=== PATIENT | male | born 1965 | race Caucasian/White ===

== ENCOUNTER 2017-07-16 16:44 | Observation (INO) | payer OTHER ==
[2017-07-16 16:48] VITALS: BP 139/86; PULSE 86; RESP 15; O2SAT 98
--- NOTE | 2017-07-16 17:47 | RADRPT ---
EXAM DATE/TIME: 07/16/2017 17:43 [place] COMPARISON: No previous studies available for comparison. INDICATIONS : Chest pain. MEDICAL HISTORY : None. SURGICAL HISTORY : None. ENCOUNTER: Initial ACUITY: 2 days PAIN SCORE: 2/10 LOCATION: chest midline. FINDINGS: PA and lateral views of the chest demonstrate the lungs to be symmetrically aerated without evidence of mass, infiltrate or effusion. No evidence of pneumothorax. The cardiomediastinal contours are un remarkable. Osseous structures are intact. CONCLUSION: The lungs are clear. Ricky Ragland MD on July 16, 2017 at 17:45 Board Certified Radiologist. This report was verified electronically.
[2017-07-16 18:26] LABS: BASOPHIL % 0.6 % (0.0-2.0); EOSINOPHIL # 0.1 TH/MM3 (0-0.4); EOSINOPHIL % 0.9 % (0.0-4.0); HEMATOCRIT 48.6 % (39.0-51.0); HEMOGLOBIN 16.6 GM/DL (13.0-17.0); LYMPH % 14.4 % (9.0-44.0); LYMPHOCYTE # 1.1 TH/MM3 (1.0-4.8); MEAN CORPUSCULAR HEMOGLOBIN 30.7 PG (27.0-34.0); MEAN CORPUSCULAR HGB CONC 34.1 % (32.0-36.0); MEAN PLATELET VOLUME 8.9 FL (7.0-11.0); MONO % 7.1 % (0.0-8.0); MONOCYTE # 0.6 TH/MM3 (0-0.9); PLATELET COUNT 193 TH/MM3 (150-450); RED CELL DISTRIBUTION WIDTH 13.3 % (11.6-17.2); WHITE BLOOD COUNT 7.8 TH/MM3 (4.0-11.0)
[2017-07-16 18:39] LABS: BICARBONATE 28.6 MEQ/L (21.0-32.0); BLOOD UREA NITROGEN 22 MG/DL (7-18); CALCIUM 9.7 MG/DL (8.5-10.1); CHLORIDE 104 MEQ/L (98-107); CREATININE 1.45 MG/DL (0.60-1.30); GLOMERULAR FILTRATION RATE 52 ML/MIN (>89); GLUCOSE,RANDOM 92 MG/DL (74-106); SODIUM (NA) 138 MEQ/L (136-145)
[2017-07-16 18:43] LABS: TROPONIN I LESS THAN 0.02 NG/ML (0.02-0.05)
[2017-07-16 18:47] LABS: INTERNATIONAL NORMALIZED RATIO 0.9 RATIO; PROTHROMBIN TIME - PATIENT 10.1 SEC (9.8-11.6)
--- NOTE | 2017-07-16 19:06 | PD ---
HPI Chief Complaint: Cardiac Complaint Time Seen by Provider: 19:04 Travel History International Travel<30 days: No Contact w/Intl Traveler<30days: No Traveled to known affect area: No History of Present Illness HPI 51-year-old male with no significant past medical history presents for evaluation of chest discomfort. He reports that symptoms started yesterday evening at 7 PM while sitting. He describes it as a dull aching sensation which is constant, no obvious aggravating factors, it seems to be somewhat improved when lying down. He reports that he went to sleep yesterday evening and woke up and the pain has persisted throughout the day. He was seen at [facility] and referred here for further evaluation and workup. The patient was given one sublingual nitroglycerin and 325 mg of aspirin at this clinic and he reports that the blister did help with his discomfort. He currently rates it as a 1.5 out of 10 pain. He has never had this sort of pain before. He denies any shortness of breath, diaphoresis, nausea, vomiting, Tylenol pain, leg swelling. He reports paternal history of coronary artery disease in his 60s. His primary care physician is Dr. Bang. No other complaints at this time. [facility] Social History Alcohol Use: No Tobacco Use: No Allergies-Medications (Allergen,Severity, Reaction): Coded Allergies: Penicillins (Verified Allergy, Unknown, 07/16/17) Review of Systems Except as stated in HPI: all other systems reviewed are Neg Physical Exam Narrative GENERAL: Well-developed well-nourished male in no acute distress SKIN: Warm and dry. HEAD: Atraumatic. Normocephalic. EYES: Pupils equal and round. No scleral icterus. No injection or drainage. ENT: No nasal bleeding or discharge. Mucous membranes pink and moist. NECK: Trachea midline. No JVD. CARDIOVASCULAR: Regular rate and rhythm. No murmur appreciated. RESPIRATORY: No accessory muscle use. Clear to auscultation. Breath sounds equal bilaterally. GASTROINTESTINAL: Abdomen soft, non-tender, nondistended. Hepatic and splenic margins not palpable. MUSCULOSKELETAL: No obvious deformities. No clubbing. No cyanosis. No edema. NEUROLOGICAL: Awake and alert. No obvious cranial nerve deficits. Motor grossly within normal limits. Normal speech. PSYCHIATRIC: Appropriate mood and affect; insight and judgment normal. Data Data Last Documented VS Vital Signs Date Time Temp Pulse Resp B/P (MAP) Pulse Ox O2 Delivery O2 Flow Rate FiO2 07/16/17 16:48 86 15 139/86 (103) 98 Orders Orders Electrocardiogram (07/16/17 16:59) Complete Blood Count With Diff (07/16/17 16:59) Basic Metabolic Panel (Bmp) (07/16/17 16:59) Ckmb (Isoenzyme) Profile (07/16/17 16:59) Troponin I (07/16/17 16:59) Iv Access Insert/Monitor (07/16/17 16:59) Ecg Monitoring (07/16/17 16:59) Oxygen Administration (07/16/17 16:59) Oximetry (07/16/17 16:59) Act Partial Throm Time (Ptt) (07/16/17 16:59) Prothrombin Time / Inr (Pt) (07/16/17 16:59) Chest, Pa & Lat (07/16/17 16:59) CKMB (07/16/17 18:00) CKMB% (07/16/17 18:00) Admit Order (Ed Use Only) (07/16/17 19:26) Nitroglycerin 2% Oint (Nitroglycerin 2% (07/16/17 19:30) Activity Bed Rest With Brp (07/16/17 19:26) Vital Signs (Adult) Q4H (07/16/17 19:26) Cardiac Rhythm .As Directed (07/16/17 19:26) Notify Dr: Other .PRN (07/16/17 19:26) Notify Dr. Parameters (07/16/17 19:26) Resp Oxygen Nasal Cannula (07/16/17 ) Ckmb (Isoenzyme) Profile (07/16/17 21:00) Ckmb (Isoenzyme) Profile (07/17/17 00:00) Troponin I (07/16/17 21:00) Troponin I (07/17/17 00:00) Electrocardiogram (07/16/17 21:00) Electrocardiogram (07/17/17 00:00) ^ Obtain (07/16/17 19:26) Sodium Chloride 0.9% Flush (Ns Flush) (07/16/17 19:30) Sodium Chloride 0.9% Flush (Ns Flush) (07/16/17 21:00) Npo After Midnight W/ Po Meds (07/17/17 Breakfast) Labs Laboratory Tests Test 07/16/17 18:00 White Blood Count 7.8 TH/MM3 Red Blood Count 5.40 MIL/MM3 Hemoglobin 16.6 GM/DL Hematocrit 48.6 % Mean Corpuscular Volume 90.0 FL Mean Corpuscular Hemoglobin 30.7 PG Mean Corpuscular Hemoglobin Concent 34.1 % Red Cell Distribution Width 13.3 % Platelet Count 193 TH/MM3 Mean Platelet Volume 8.9 FL Neutrophils (%) (Auto) 77.0 % Lymphocytes (%) (Auto) 14.4 % Monocytes (%) (Auto) 7.1 % Eosinophils (%) (Auto) 0.9 % Basophils (%) (Auto) 0.6 % Neutrophils # (Auto) 6.0 TH/MM3 Lymphocytes # (Auto) 1.1 TH/MM3 Monocytes # (Auto) 0.6 TH/MM3 Eosinophils # (Auto) 0.1 TH/MM3 Basophils # (Auto) 0.0 TH/MM3 CBC Comment DIFF FINAL Differential Comment Prothrombin Time 10.1 SEC Prothromb Time International Ratio 0.9 RATIO Activated Partial Thromboplast Time 24.9 SEC Blood Urea Nitrogen 22 MG/DL Creatinine 1.45 MG/DL Random Glucose 92 MG/DL Calcium Level 9.7 MG/DL Sodium Level 138 MEQ/L Potassium Level 4.1 MEQ/L Chloride Level 104 MEQ/L Carbon Dioxide Level 28.6 MEQ/L Anion Gap 5 MEQ/L Estimat Glomerular Filtration Rate 52 ML/MIN Total Creatine Kinase 184 U/L Creatine Kinase MB 3.4 NG/ML Troponin I LESS THAN 0.02 NG/ML [facility] Medical Decision Making Medical Screen Exam Complete: Yes Emergency Medical Condition: Yes Medical Record Reviewed: Yes Differential Diagnosis Angina, acute coronary syndrome, costochondritis, pneumothorax, pericarditis, myocarditis, GERD Narrative Course The patient was placed on ECG monitoring pulse oximetry. A 12-lead EKG was obtained. Plan is for basic lab work, chest x-ray which was accomplished in triage. EKG reveals sinus rhythm, initial lab work is reassuring. At this point in time the plan will be to admit the patient with chest pain center for serial cardiac enzymes and rule out purposes. He is agreeable. Nitroglycerin paste was ordered. Diagnosis Primary Impression: Chest pain Qualified Codes: R07.9 - Chest pain, unspecified Admitting Information Admitting Physician Requests: Observation Ramesh Cooper Jul 16, 2017 19:06
[2017-07-16] MEDS ORDERED: NITROGLYCERIN 2% OINT 1 GM PACKET TOP ONE (19:30)
[2017-07-16] MEDS ORDERED: SODIUM CHLORIDE 0.9% FLUSH 10 ML FLUSH IV FLUSH PRN (19:30)
[2017-07-16 19:53] VITALS: BP 127/83; PULSE 73; RESP 18; TEMP 98.4; O2SAT 100
[2017-07-16 20:00] VITALS: O2SAT 100
[2017-07-16] MEDS: SODIUM CHLORIDE 0.9% FLUSH 10 ML FLUSH IV FLUSH SCH (21:00)
[2017-07-16 21:26] VITALS: BP 111/79; PULSE 83; RESP 20; TEMP 98.2; O2SAT 99
--- NOTE | 2017-07-16 21:35 | EKG ---
Date Performed: 07/16/2017 Time Performed: 17:53:55 PTAGE: 51 years EKG: Sinus rhythm NO PREVIOUS TRACING DOCTOR: Sharan Rodriguez Interpretating Date/Time 07/16/2017 21:34:01
--- NOTE | 2017-07-16 21:35 | EKG ---
Date Performed: 07/16/2017 Time Performed: 17:53:55 PTAGE: 51 years EKG: Sinus rhythm NO PREVIOUS TRACING DOCTOR: Sharan Rodriguez Interpretating Date/Time 07/16/2017 21:34:01
--- NOTE | 2017-07-16 21:35 | EKG ---
Date Performed: 07/16/2017 Time Performed: 17:53:55 PTAGE: 51 years EKG: Sinus rhythm NO PREVIOUS TRACING DOCTOR: Sharan Rodriguez Interpretating Date/Time 07/16/2017 21:34:01
[2017-07-16 22:50] VITALS: BP 105/59; PULSE 70; RESP 18; TEMP 97.8; O2SAT 94
[2017-07-16 23:47] LABS: TROPONIN I LESS THAN 0.02 NG/ML (0.02-0.05)
[2017-07-17 02:47] LABS: TROPONIN I LESS THAN 0.02 NG/ML (0.02-0.05)
[2017-07-17 03:47] VITALS: BP 101/61; PULSE 61; RESP 18; TEMP 97.9; O2SAT 97
[2017-07-17 07:49] VITALS: O2SAT 93
--- NOTE | 2017-07-17 08:13 | HHI.HP ---
HPI Primary Care Physician Jeffrey Angel MD Chief Complaint Chest discomfort History of Present Illness 51 year old male with no past medical history presents to the ER for further evaluation of chest discomfort. Onset Saturday around 7 pm. Location substernal. Characterized as "uncomfortable, not pain, sharp, or pressure." Severity "mild. " Duration constant since Saturday evening. No radiation. No associated symptoms of nausea, vomiting, dyspnea, or diaphoresis. No known precipitating or relieving factors. Denies similar pain in the past. Laying flat makes pain better. Initially thought discomfort was ingestion, took Pepto with some relief on Saturday night. Review of Systems General: No fatigue,weakness, fever, chills, or recent illness. Has been in his general state of health. HEENT: No OWEN, no dysphasia CV: As stated above. Chest discomfort continues, reported to be less severe. No palpations or dizziness RESP: No SOB, cough, wheeze, or sputum production. GI: No nausea, vomiting, or bowel changes. No unintentional weight gain or weight loss. : No dysuria, urgency, frequency, or history of kidney stones EXT: No lower leg edema, no paraesthesias MS: No discomfort, change in ROM, injury, trauma, or recent. NEURO: No difficulty with balance, LOC, or motor/sensory deficits PSYCH: No anxiety, depression, or situational stress. SKIN: No rashes, no concerning lesions Past Family Social History Allergies: Coded Allergies: Penicillins (Verified Allergy, Unknown, 07/16/17) Past Medical History None Past Surgical History Right carpel tunnel surgery- 5 years ago Reported Medications None Active Ordered Medications Current Medications Medications (Trade) Dose Ordered Sig/Blessing Route Start Time Stop Time Status Last Admin (NS Flush) 2 ml UNSCH PRN IV FLUSH 07/16/17 19:30 (NS Flush) 2 ml BID IV FLUSH 07/16/17 21:00 Family History Father CABG x4 in late 40s. Social History No known CAD, hypertension, diabetes, or hyperlipidemia. Lifelong nonsmoker. Denies any alcohol or illegal drug use. 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 None Physical Exam Vital Signs Vital Signs Date Time Temp Pulse Resp B/P (MAP) Pulse Ox O2 Delivery O2 Flow Rate FiO2 07/17/17 03:47 97.9 61 18 101/61 (74) 97 07/16/17 22:50 97.8 70 18 105/59 (74) 94 07/16/17 21:26 98.2 83 20 111/79 (90) 99 07/16/17 21:23 07/16/17 20:00 100 07/16/17 19:53 100 Room Air 07/16/17 19:53 100 Nasal Cannula 07/16/17 19:53 98.4 73 18 127/83 (98) 100 Room Air 07/16/17 16:48 86 15 139/86 (103) 98 Physical Exam GENERAL: Alert WN, WD, NAD, pleasant, male HEAD: NC, AT EYES: Sclera clear, conjunctiva without injection, pupils equal and round ENT: Mucous membranes pink and moist NECK: Supple, no masses, trachea midline CV: RRR, without murmur, rub, gallop, no JVD, S1-S2 no S3-S4. No carotid bruits. Chest wall nontender with palpations. RESP: Clear lungs throughout bilateral, no crackles, wheeze, rhonchi, symmetrical chest rise, nonlabored, able to speak in full sentences ABD: Soft, NT, ND, no masses, positive bowel tones EXT: Pulses +24, no dependent edema MS: Normal tone 4 extremities, no obvious deformities, full range of motion NEURO: CN II through CN XII grossly intact, motor strength 5/5, gait WNL PSYCH: A+O 3, pleasant affect, appropriate speech, appropriate mood and affect , insight and judgment SKIN: Normal turgor, normal texture, no lesions, no rashes, brisk cap refill, even hair distribution Laboratory Laboratory Tests Test 07/16/17 18:00 07/16/17 23:00 07/17/17 01:50 White Blood Count 7.8 Red Blood Count 5.40 Hemoglobin 16.6 Hematocrit 48.6 Mean Corpuscular Volume 90.0 Mean Corpuscular Hemoglobin 30.7 Mean Corpuscular Hemoglobin Concent 34.1 Red Cell Distribution Width 13.3 Platelet Count 193 Mean Platelet Volume 8.9 Neutrophils (%) (Auto) 77.0 Lymphocytes (%) (Auto) 14.4 Monocytes (%) (Auto) 7.1 Eosinophils (%) (Auto) 0.9 Basophils (%) (Auto) 0.6 Neutrophils # (Auto) 6.0 Lymphocytes # (Auto) 1.1 Monocytes # (Auto) 0.6 Eosinophils # (Auto) 0.1 Basophils # (Auto) 0.0 CBC Comment DIFF FINAL Differential Comment Prothrombin Time 10.1 Prothromb Time International Ratio 0.9 Activated Partial Thromboplast Time 24.9 Blood Urea Nitrogen 22 Creatinine 1.45 Random Glucose 92 Calcium Level 9.7 Sodium Level 138 Potassium Level 4.1 Chloride Level 104 Carbon Dioxide Level 28.6 Anion Gap 5 Estimat Glomerular Filtration Rate 52 Total Creatine Kinase 184 118 120 Creatine Kinase MB 3.4 2.4 2.3 Troponin I LESS THAN 0.02 LESS THAN 0.02 LESS THAN 0.02 Result Diagram: 07/16/17 1800 07/16/17 1800 Imaging Last Impressions Chest X-Ray 07/16/17 165 Signed Impressions: Service Date/Time: Sunday, July 16, 2017 17:43 - CONCLUSION: The lungs are clear. Ricky Ragland MD Course EKG Normal sinus rhythm, normal axis, incomplete right bundle branch block Caprini VTE Risk Assessment Caprini VTE Risk Assessment: No/Low Risk (score <= 1) Caprini Risk Assessment Model Point Value = 1 Point Value = 2 Point Value = 3 Point Value = 5 Age 41-60 Minor surgery BMI > 25 kg/m2 Swollen legs Varicose veins or History of unexplained or recurrent spontaneous Oral contraceptives or hormone replacement Sepsis (< 1 month) Serious lung disease, including pneumonia (< 1 month) Abnormal pulmonary function Acute myocardial infarction Congestive heart failure (< 1 month) History of inflammatory bowel disease Medical patient at bed rest Age 61-74 Arthroscopic surgery Major open surgery (> 45 min) Laparoscopic surgery (> 45 min) Malignancy Confined to bed (> 72 hours) Immobilizing plaster cast Central venous access Age >= 75 History of VTE Family history of VTE Factor V Leiden Prothrombin [id number] Lupus anticoagulant Anticardiolipin antibodies Elevated serum homocysteine Heparin-induced thrombocytopenia Other congenital or acquired thrombophilia Stroke (< 1 month) Elective arthroplasty Hip, pelvis, or leg fracture Acute spinal cord injury (< 1 month) Prophylaxis Regimen Total Risk Factor Score Risk Level Prophylaxis Regimen 0-1 Low Early ambulation 2 Moderate Order ONE of the following: *Sequential Compression Device (SCD) *Heparin 5000 units SQ BID 3-4 Higher Order ONE of the following medications: *Heparin 5000 units SQ TID *Enoxaparin/Lovenox 40 mg SQ daily (WT < 150 kg, CrCl > 30 mL/min) *Enoxaparin/Lovenox 30 mg SQ daily (WT < 150 kg, CrCl > 10-29 mL/min) *Enoxaparin/Lovenox 30 mg SQ BID (WT < 150 kg, CrCl > 30 mL/min) AND/OR *Sequential Compression Device (SCD) 5 or more Highest Order ONE of the following medications: *Heparin 5000 units SQ TID (Preferred with Epidurals) *Enoxaparin/Lovenox 40 mg SQ daily (WT < 150 kg, CrCl > 30 mL/min) *Enoxaparin/Lovenox 30 mg SQ daily (WT < 150 kg, CrCl > 10-29 mL/min) *Enoxaparin/Lovenox 30 mg SQ BID (WT < 150 kg, CrCl > 30 mL/min) AND *Sequential Compression Device (SCD) Assessment and Plan Assessment and Plan #1 Atypical chest pain-admitted to chest pain center. Ruled out with 3 sets of EKG, cardiac enzymes, and monitored overnight. Seen and evaluated by Dr. Ankur Reyes. Proceed with exercise stress testing. If unremarkable, plan to discharge home later this afternoon with follow up with PCP. Patient is agreeable to plan of care. Abbie Gordon Jul 17, 2017 08:13
[2017-07-17 08:15] VITALS: BP 107/57; PULSE 59; RESP 16; TEMP 98; O2SAT 95
[2017-07-17] MEDS: SODIUM CHLORIDE 0.9% FLUSH 10 ML FLUSH IV FLUSH SCH (09:00)
[2017-07-17 10:59] VITALS: BP 116/74; PULSE 97; RESP 16; TEMP 98.1; O2SAT 97
--- NOTE | 2017-07-17 11:42 | HHI.DCPOC ---
Discharge Care Plan Diagnosis: (1) Atypical chest pain Goals to Promote Your Health * To prevent worsening of your condition and complications * To maintain your health at the optimal level Directions to Meet Your Goals Take your medications as prescribed Follow your dietary instruction Follow activity as directed Keep your appointments as scheduled Take your immunizations and boosters as scheduled If your symptoms worsen call your PCP, if no PCP go to Urgent Care Center or Emergency Room Smoking is Dangerous to Your Health. Avoid second hand smoke Call the 24-hour hour crisis hotline for domestic abuse at Abbie Gordon Jul 17, 2017 11:42
--- NOTE | 2017-07-17 11:42 | HHI.DCPOC ---
Discharge Care Plan Diagnosis: (1) Atypical chest pain Goals to Promote Your Health * To prevent worsening of your condition and complications * To maintain your health at the optimal level Directions to Meet Your Goals Take your medications as prescribed Follow your dietary instruction Follow activity as directed Keep your appointments as scheduled Take your immunizations and boosters as scheduled If your symptoms worsen call your PCP, if no PCP go to Urgent Care Center or Emergency Room Smoking is Dangerous to Your Health. Avoid second hand smoke Call the 24-hour hour crisis hotline for domestic abuse at Abbie Gordon Jul 17, 2017 11:42
--- NOTE | 2017-07-17 11:42 | HHI.DCPOC ---
Discharge Care Plan Diagnosis: (1) Atypical chest pain Goals to Promote Your Health * To prevent worsening of your condition and complications * To maintain your health at the optimal level Directions to Meet Your Goals Take your medications as prescribed Follow your dietary instruction Follow activity as directed Keep your appointments as scheduled Take your immunizations and boosters as scheduled If your symptoms worsen call your PCP, if no PCP go to Urgent Care Center or Emergency Room Smoking is Dangerous to Your Health. Avoid second hand smoke Call the 24-hour hour crisis hotline for domestic abuse at Abbie Gordon Jul 17, 2017 11:42
--- NOTE | 2017-07-17 16:12 | EKG ---
Date Performed: 07/17/2017 Time Performed: 01:54:40 PTAGE: 51 years EKG: SINUS BRADYCARDIA WITH SINUS ARRHYTHMIA INCOMPLETE RIGHT BUNDLE BRANCH BLOCK BORDERLINE ECG PREVIOUS TRACING : 07/16/2017 22.39 Since previous tracing, no significant change noted DOCTOR: Ankur Reyes Interpretating Date/Time 07/17/2017 16:11:02
--- NOTE | 2017-07-17 16:13 | EKG ---
Date Performed: 07/16/2017 Time Performed: 22:39:00 PTAGE: 51 years EKG: Sinus rhythm INDETERMINATE AXIS INCOMPLETE RIGHT BUNDLE BRANCH BLOCK BORDERLINE ECG PREVIOUS TRACING : 07/16/2017 17.53 Since previous tracing, no significant change noted DOCTOR: Ankur Reyes Interpretating Date/Time 07/17/2017 16:13:24
--- NOTE | 2017-07-17 16:20 | TR ---
Date Performed: 07/17/2017 Time Performed: 10:23:52 DOCTOR: Ankur Reyes DRUG LIST: CLINICAL HISTORY: REASON FOR TEST: REASON FOR ENDING: OBSERVATION: CONCLUSION: Jevon protocol completed. Stopped sec to exceeding target heart rate. Maximum YY=788 Maximum AH=185/72 Total Exercise Time=9:28 % Target HR Achieved=87.0. No reprod chest pain. No ectop y. Upsloping j point depression. No reproc chest pain. Normal bp response. Good exercise tolerance. R ecovery quick and unremarkable. COMMENTS: Patient exercised using the Jevon protocol. No electrocardiographic changes were seen to suggest ischemia. Hemodynamic response to exercise was normal. No significant arrhythmia was prese nt.
--- NOTE | 2017-07-17 16:20 | TR ---
Date Performed: 07/17/2017 Time Performed: 10:23:52 DOCTOR: Ankur Reyes DRUG LIST: CLINICAL HISTORY: REASON FOR TEST: REASON FOR ENDING: OBSERVATION: CONCLUSION: Jevon protocol completed. Stopped sec to exceeding target heart rate. Maximum ZP=267 Maximum OX=737/72 Total Exercise Time=9:28 % Target HR Achieved=87.0. No reprod chest pain. No ectop y. Upsloping j point depression. No reproc chest pain. Normal bp response. Good exercise tolerance. R ecovery quick and unremarkable. COMMENTS: Patient exercised using the Jevon protocol. No electrocardiographic changes were seen to suggest ischemia. Hemodynamic response to exercise was normal. No significant arrhythmia was prese nt.
--- NOTE | 2017-07-17 16:20 | TR ---
Date Performed: 07/17/2017 Time Performed: 10:23:52 DOCTOR: Ankur Reyes DRUG LIST: CLINICAL HISTORY: REASON FOR TEST: REASON FOR ENDING: OBSERVATION: CONCLUSION: Jevon protocol completed. Stopped sec to exceeding target heart rate. Maximum LY=769 Maximum NB=781/72 Total Exercise Time=9:28 % Target HR Achieved=87.0. No reprod chest pain. No ectop y. Upsloping j point depression. No reproc chest pain. Normal bp response. Good exercise tolerance. R ecovery quick and unremarkable. COMMENTS: Patient exercised using the Jevon protocol. No electrocardiographic changes were seen to suggest ischemia. Hemodynamic response to exercise was normal. No significant arrhythmia was prese nt.
== END 2017-07-17 13:42 | disposition home or self-care (01) ==
LOC: NEPC 16:44 → NEDA 19:28 → NEPGCP 21:09
PROVIDERS: ADMIT Internal Medicine Interventional Cardiology; ATTEND Internal Medicine Interventional Cardiology
DX: R07.89 Other chest pain (principal); R94.31 Abnormal electrocardiogram [ECG] [EKG]; Z82.49 Family history of ischemic heart disease and other diseases of the circulatory system
CPT/HCPCS: 71020; 80048; 82550; 82552; 84484; 85025; 85610; 85652; 85730; 93005; 93017; 99285; G0378